=== PATIENT | female | born 1970 | race Caucasian/White ===

== ENCOUNTER → 2017-07-08 | Day surgery (SDC) | payer OTHER ==
--- NOTE | 2017-07-09 13:07 | PATH ---
Surgical Pathology Report Patient Name: NI ALVA [facility]. Rec. #: [id number] /Age/Gender: 1970 (Age: 46) / F Account: [id number] Location: [facility] Taken: 07/08/2017 Received: 07/08/2017 Reported: 07/09/2017 Physicians: Arnel Seay Specimen(s) Received RIGHT BREAST CORE BIOPSY Clinical History Nonpalpable lesion Ultrasound findings: Probably benign 0.8 x0.7 x 0.5 cm, solid mass Final Diagnosis BREAST, RIGHT, 10:00, ULTRASOUND GUIDED CORE BIOPSY: FIBROADENOMA. Electronically Signed Lizy Patricia M.D. Gross Description Received in formalin labeled "right 10:00," are 5 churchill-yellow, cylindrical portions of fibroadipose tissue ranging from 0.1-1.0 cm in length and averaging 0.1 cm in diameter. The specimens are submitted in toto in one cassette. Total formalin fixation time: Between 6-10 hours. /07/08/2017 [facility]07/08/2017
== END | disposition home or self-care (01) ==
LOC: JRADUS-SUR 07:58 → MERGE 07:58
PROVIDERS: ATTEND Physician Assistant
PROC: 0HBT3ZX Excision of Right Breast, Percutaneous Approach, Diagnostic (ICD-10-PCS; principal; 2017-07-08)
DX: D24.1 Benign neoplasm of right breast (principal)
CPT/HCPCS: 19083; 87899; 88305-TC; A4648

== ENCOUNTER → 2022-02-08 | Day surgery (SDC) | payer BC | END | disposition home or self-care (01) | LOC: FMAMMOTONE 08:25 | PROVIDERS: ATTEND Student in an Organized Health Care Education/Training Program | PROC: 0HBU3ZX Excision of Left Breast, Percutaneous Approach, Diagnostic (ICD-10-PCS; principal; 2022-02-08) | DX: N60.12 Diffuse cystic mastopathy of left breast (principal); N64.89 Other specified disorders of breast; R92.1 Mammographic calcification found on diagnostic imaging of breast | CPT/HCPCS: 19081; 76098-TC-FY; 87899; 88305-TC; A4648 ==

== ENCOUNTER 2022-03-02 22:06 | Observation (INO) | payer BC ==
[2022-03-02] MEDS ORDERED: KETOROLAC TROMETHAMINE 30 MG/1 ML VIAL IVPUSH ONE (23:01)
[2022-03-02] MEDS ORDERED: KETOROLAC TROMETHAMINE 15 MG/ML VIAL ONE (23:21)
[2022-03-02 23:30] LABS: HEMATOCRIT 34.5 % (32.4-45.2); HEMOGLOBIN 11.3 GM/dL (10.7-15.3); MCH 27.7 pg (25.7-33.7); MCHC 32.8 g/dl (32.0-36.0); MEAN CELL VOLUME 84.4 fl (80-96); MEAN PLT VOLUME 7.3 fl (7.5-11.1); PLATELET COUNT 385 10^3/uL (134-434); RBC 4.08 M/mm3 (3.60-5.2); RDW 16.6 % (11.6-15.6); WHITE BLOOD COUNT 10.6 K/mm3 (4.0-10.0)
[2022-03-02 23:45] LABS: EPI CELLS 18 /uL (0-25.1); HYALINE CASTS 4 /uL (0-3.1); URINE APPEARANCE CLEAR; URINE BACTERIA 3 /uL (0-1359); URINE BILIRUBIN NEGATIVE (NEGATIVE); URINE COLOR YELLOW; URINE GLUCOSE (UA) NEGATIVE (NEGATIVE); URINE KETONE 1+ (NEGATIVE); URINE LEUK ESTERASE NEGATIVE (NEGATIVE); URINE NITRITE NEGATIVE (NEGATIVE); URINE PROTEIN 1+ (NEGATIVE); URINE RBC 518 /uL (0-23.9); URINE UROBILINOGEN 0.2 mg/dL (0.2-1.0); URINE WBC 25 /uL (0-25.8)
[2022-03-02 23:58] LABS: ALBUMIN 3.9 g/dl (3.4-5.0); BLOOD UREA NITROGEN 13.9 mg/dL (7-18); CALCIUM 9.4 mg/dL (8.5-10.1)
[2022-03-03 00:01] LABS: CREATININE 0.7 mg/dL (0.55-1.3)
[2022-03-03 00:03] LABS: BILIRUBIN,TOTAL 0.4 mg/dL (0.2-1); TOT PROT 7.6 g/dl (6.4-8.2)
[2022-03-03] MEDS ORDERED: TAMSULOSIN HCL 0.4 MG CAP PO ONE (00:53)
[2022-03-03] MEDS ORDERED: SODIUM CHLORIDE 1,000 ML IV STA (00:54)
[2022-03-03] MEDS ORDERED: TAMSULOSIN HCL 0.4 MG CAP ONE (00:57)
[2022-03-03] MEDS ORDERED: ACETAMINOPHEN 325 MG TABLET (FP) PO PRN (02:05)
[2022-03-03] MEDS ORDERED: TRIMETHOBENZAMIDE HCL 200MG/2ML INJ IM PRN (03:39)
[2022-03-03 04:46] VITALS: BMI 28.1
[2022-03-03] MEDS ORDERED: KETOROLAC TROMETHAMINE 15 MG/ML VIAL IVPUSH PRN (06:00)
[2022-03-03 10:59] LABS: BASO % 0.6 % (0-2.0); EOS % 1.9 % (0-4.5); HEMATOCRIT 31.9 % (32.4-45.2); HEMOGLOBIN 10.5 GM/dL (10.7-15.3); LYMPH % 26.7 % (8-40); MCH 27.9 pg (25.7-33.7); MCHC 32.8 g/dl (32.0-36.0); MEAN CELL VOLUME 85.1 fl (80-96); MEAN PLT VOLUME 7.7 fl (7.5-11.1); MONO % 8.2 % (3.8-10.2); NEUT % 62.6 % (42.8-82.8); PLATELET COUNT 312 10^3/uL (134-434); RBC 3.75 M/mm3 (3.60-5.2); RDW 16.1 % (11.6-15.6); WHITE BLOOD COUNT 5.7 K/mm3 (4.0-10.0)
[2022-03-03 11:02] LABS: INR 1.06 (0.83-1.09); PROTHROMBIN TIME (PATIENT) 12.2 SEC (9.7-13.0)
[2022-03-03 11:04] LABS: ACTIVATED PTT 28.7 SECONDS (25.2-36.5)
[2022-03-03 11:19] LABS: BLOOD UREA NITROGEN 9.7 mg/dL (7-18); CALCIUM 8.7 mg/dL (8.5-10.1)
[2022-03-03 11:23] LABS: CREATININE 0.7 mg/dL (0.55-1.3)
[2022-03-03] MEDS: POTASSIUM CHLORIDE ORAL LIQUID 20 MEQ/15 ML PO SCH (16:52)
[2022-03-03] MEDS: SODIUM CHLORIDE 1,000 ML IV SCH (16:52)
[2022-03-03] MEDS: TAMSULOSIN HCL 0.4 MG CAP PO SCH (23:03)
[2022-03-04 09:11] LABS: BASO % 0.6 % (0-2.0); EOS % 4.5 % (0-4.5); HEMATOCRIT 33.4 % (32.4-45.2); HEMOGLOBIN 10.8 GM/dL (10.7-15.3); LYMPH % 35.6 % (8-40); MCH 27.6 pg (25.7-33.7); MCHC 32.4 g/dl (32.0-36.0); MEAN PLT VOLUME 7.1 fl (7.5-11.1); MONO % 3.7 % (3.8-10.2); NEUT % 55.6 % (42.8-82.8); PLATELET COUNT 297 10^3/uL (134-434); RBC 3.93 M/mm3 (3.60-5.2); RDW 16.3 % (11.6-15.6); WHITE BLOOD COUNT 4.1 K/mm3 (4.0-10.0)
[2022-03-04 09:34] LABS: ALBUMIN 3.2 g/dl (3.4-5.0); BLOOD UREA NITROGEN 8.2 mg/dL (7-18); CALCIUM 8.5 mg/dL (8.5-10.1)
[2022-03-04 09:37] LABS: CREATININE 0.5 mg/dL (0.55-1.3)
[2022-03-04 09:38] LABS: BILIRUBIN,TOTAL 0.6 mg/dL (0.2-1)
[2022-03-04] MEDS: POTASSIUM CHLORIDE ORAL LIQUID 20 MEQ/15 ML PO SCH (09:39)
[2022-03-04 09:42] LABS: TOT PROT 6.6 g/dl (6.4-8.2)
[2022-03-04] MEDS: SODIUM CHLORIDE 1,000 ML IV SCH (17:29)
[2022-03-04] MEDS: TAMSULOSIN HCL 0.4 MG CAP PO SCH (21:55)
[2022-03-04 21:59] VITALS: RESP 18
[2022-03-05] MEDS: SODIUM CHLORIDE 1,000 ML IV SCH (02:40)
[2022-03-05 10:53] VITALS: BP 115/71; PULSE 87; TEMP 97.8
[2022-03-05] MEDS: POTASSIUM CHLORIDE ORAL LIQUID 20 MEQ/15 ML PO SCH (11:19)
== END 2022-03-05 12:01 | disposition home or self-care (01) ==
LOC: JER 22:06 → JERBED 03-03 01:03 → J5S 03-03 03:29 → J7W 03-04 11:53
PROVIDERS: ADMIT Internal Medicine; ATTEND Family Medicine
PROC: 3E0333Z Introduction of Anti-inflammatory into Peripheral Vein, Percutaneous Approach (ICD-10-PCS; principal; 2022-03-03)
PROC: 3E0337Z Introduction of Electrolytic and Water Balance Substance into Peripheral Vein, Percutaneous Approach (ICD-10-PCS; 2022-03-03)
DX: N13.2 Hydronephrosis with renal and ureteral calculous obstruction (principal); D72.829 Elevated white blood cell count, unspecified; R10.30 Lower abdominal pain, unspecified; R30.0 Dysuria; R11.2 Nausea with vomiting, unspecified
CPT/HCPCS: 0241U-QW; 36415; 74176-TC; 80048; 80053; 81003; 83605; 83690; 84703; 85025; 85027; 85610; 85730; 87086; 93005; 93010; 99285-25; G0378